=== PATIENT | male | born 1990 | race Caucasian/White ===

== ENCOUNTER → 2019-10-06 12:29 | Outpatient (CLI) | payer BC, SELFPAY | PROVIDERS: PCP Family Medicine; Visit Provider Family Medicine | DX: Z20.828 Contact with and (suspected) exposure to other viral communicable diseases (principal) | CPT/HCPCS: U0003 ==

== ENCOUNTER → 2019-10-11 12:01 | Outpatient (CLI) | payer BC, SELFPAY ==
[2019-10-12 16:29] LABS: Covid-19 Nasal PCR Sendout UK NOT DETECTED
== END ==
PROVIDERS: PCP Family Medicine; Visit Provider Family Medicine
DX: Z03.818 Encounter for observation for suspected exposure to other biological agents ruled out (principal); Z11.59 Encounter for screening for other viral diseases
CPT/HCPCS: U0003

== ENCOUNTER → 2020-10-10 11:58 | Outpatient (CLI) | payer BC, SELFPAY ==
--- NOTE | 2020-10-10 12:02 | XR_ITS ---
PROCEDURE: XR HIP RT 2-3V W/PELVIS CLINICAL INDICATION: HIP PAIN COMPARISON: No exams were available for comparison FINDINGS: No fracture or dislocation is evident. No significant degenerative change. No lytic or blastic change. Unremarkable soft tissues. IMPRESSION: No acute findings. Dictated by: Eriberto Donald MD 10/10/2020 13:52 Eriberto Donald MD in [place] 10/10/2020 13:52
== END ==
PROVIDERS: PCP Family Medicine; Visit Provider Nurse Practitioner Family
DX: M25.551 Pain in right hip (principal)
CPT/HCPCS: 73502

== ENCOUNTER → 2021-08-02 15:41 | Outpatient (CLI) | payer BC, SELFPAY | PROVIDERS: PCP Family Medicine; Visit Provider Physician Assistant | DX: Z20.822 Contact with and (suspected) exposure to COVID-19 (principal) | CPT/HCPCS: C9803; U0003; U0005 ==

== ENCOUNTER 2022-10-10 09:00 | Emergency (ER) | payer OTHER, SELFPAY ==
[2022-10-10 09:45] VITALS: BP 124/66; PULSE 91; RESP 18; TEMP 38.1; O2SAT 98; BMI 38.1
--- NOTE | 2022-10-10 10:07 | EXP.UTC ---
Discharge Plan Disposition Patient Disposition: Home, Self-Care Condition: Good Prescriptions Prescriptions: New amoxicillin 500 mg tablet 500 mg PO TID 7 Days Qty: 21 0RF benzonatate 100 mg capsule 100 mg PO TID PRN (Reason: cough) Qty: 30 0RF methylprednisolone [Medrol ([place])] 4 mg tablets,dose pack See Rx Instructions .Route .COMPLEX 6 Days Qty: 21 0RF Rx Instructions: taper pack; No Action oseltamivir 75 MG capsule 75 mg PO BID Qty: 10 0RF Referrals Follow up/Referrals: Camilo Ta MD [Primary Care Provider] - See instructions Activity Restrictions/Add. Instructions Additional Instructions/Restrictions: *Monitor Temp, Over the counter Motrin or Tylenol as directed/as needed Tylenol every 4 hours and Motrin every 6 hours (as long as your family doctor has told you that you can take it) for fever or pain. and straight to ER if unable to lower temp less than 101.0 after medication given *Warm salt water gargles may help to soothe the throat *Throat Lozenges? *Warm fluids like tea with honey may help to soothe the throat? *Sleep elevated *Humidifier/Vaporizer Your throat swab was sent for culture. Those results are typically sent to your primary care. Be sure to follow up in 2-3 days with your family doctor/primary care physician if no improvement so they can review those result and treat if necessary. If you don?t have a primary care doctor, I recommend you get one but in the mean time, you will have to return to a walk in clinic Follow up IMMEDIATELY for new or worsening symptoms or no Noticeable improvement over the next 48-72 hours. 911 for difficulty breathing or swallowing You were tested for today for Upper Respiratory Panel with COVID19 your test result should be back in the next 24 You may check your results on the [facility] Clinical Impressions Clinical Impression: Otitis media Qualifiers: Otitis media type: unspecified Laterality: right Qualified Code(s): H66.91 - Otitis media, unspecified, right ear Stand Alone Forms Stand Alone Forms: Work/School Release Instructions Patient Instructions: Sore Throat, DI for Nasal Congestion Discharge ED Provider: Nayely Corrales [facility] [place] HPI General Stated complaint: MUNGUIA, congestion, cough, weak Mode of Arrival: Ambulatory Source of Information: Patient Limitations: No Limitations Time Seen by Provider: 10/10/22 10:07 Description of Symptoms (Recalled from Triage Doc. by RN): PATIENT C/O BODY ACHES, HEADACHE, CHILLS, COUGH, AND CONGESTION SINCE THIS MORNING HEENT Symptoms (Recalled from RN notes): Yes Resp Symptoms (Recalled from RN notes): Yes Skin Symptoms (Recalled from RN notes): No MS Symptoms (Recalled from RN notes): No Functional Status (Recalled from RN notes): WNL History of Present Illness Provider Complaint: Patient states that he was at work last night and started feeling bad States that he started with feeling achy all over, nasal congestion, sore throat, cough and fatigue State that he has been having pressure and fullness in his ears for a little bit. 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 goes not sure if he may have COVID or something else Related Data Previous Rx's Medication Instructions Recorded oseltamivir 75 mg capsule 75 mg PO BID #10 caps 03/04/19 amoxicillin 500 mg tablet 500 mg PO TID 7 days #21 tabs 10/10/22 benzonatate 100 mg capsule 100 mg PO TID PRN cough #30 caps 10/10/22 methylprednisolone 4 mg tablets in See Rx Instructions .Route 10/10/22 a dose pack (Medrol ([place])) .COMPLEX 6 days #21 tabs Allergies Allergy/AdvReac Type Severity Reaction Status Date / Time No Known Allergies Allergy Verified 03/04/19 20:51 Worker's Comp Is this a Worker's Comp case?: No [facility] Disclaimer: The information contained in this section may have been updated after the patient was seen, as this informa
[2022-10-10 10:18] VITALS: BP 124/66; PULSE 91; RESP 18; TEMP 38.1; O2SAT 98
[2022-10-10 10:20] LABS: UTC Strep Screen (Rapid) Negative (Negative)
== END 2022-10-10 10:23 | disposition home or self-care (01) ==
PROVIDERS: Emergency Provider Nurse Practitioner; PCP Family Medicine
DX: H66.91 Otitis media, unspecified, right ear (principal); R50.9 Fever, unspecified; R05.9 Cough, unspecified; R51.9 Headache, unspecified; R53.83 Other fatigue
CPT/HCPCS: 87880; 99204; 99212; G0463